=== PATIENT | female | born 1975 | race Two or more races ===

== ENCOUNTER → 2017-09-09 | Emergency (ER) | payer OTHER ==
[~2017-09-09] VITALS: Ht 154.9 cm; Wt 54.4 kg
== END | disposition home or self-care (01) ==
LOC: ER 20:21
DX: M94.0 Chondrocostal junction syndrome [Tietze] (principal)

== ENCOUNTER 2021-04-19 11:01 | Emergency (ER) | payer OTHER ==
[~2021-04-19] VITALS: Ht 152.4 cm; Wt 61.7 kg
== END 2021-04-19 17:44 | disposition home or self-care (01) ==
LOC: ER 11:01
DX: R10.84 Generalized abdominal pain (principal); R50.9 Fever, unspecified; R31.9 Hematuria, unspecified; E87.6 Hypokalemia; E86.0 Dehydration